=== PATIENT | male | born 1955 | race Caucasian/White ===

== ENCOUNTER → 2017-11-08 | Outpatient (CLI) | payer OTHER ==
[~2017-11-08] MED LIST: ASPIR-LOW81 MG PO; ATORVASTATIN CA20 MG PO; FISH OIL300 MG PO; METOPROLOL TART25 MG PO; MULTI-VITAMIN1 EACH PO; NEXIUM40 MG PO; SIMVASTATIN40 MG PO; VIT D PO
--- NOTE | 2017-11-08 09:15 | Diagnostic Imaging Report ---
PROCEDURE:ABDOMINAL ULTRASOUND COMPARISON:[facility] ultrasound 09/21/2015. INDICATIONS:ABDOMEN PAIN FINDINGS: Liver: The liver is enlarged in size measuring up to 19.4 cm. Increased hepatic parenchymal echogenicity. No focal mass. Main portal vein: Measures 1 cm. Hepatopedal flow. Gallbladder: No wall thickening, distension, or stones. Common Bile Duct: Measures 0.4 cm. No echogenic filling defect. Sonographic Jean's sign: Negative reported sonographic Jean's sign. Right kidney: Measures up to 11.5 cm. No solid or cystic mass, echogenic calculi, or hydronephrosis. Normal parenchymal echogenicity. Left kidney: Measures up to 12.1 cm. No solid or cystic mass, echogenic calculi, or hydronephrosis. Normal parenchymal echogenicity. Spleen: Measures 11 cm. Pancreas: The visualized portions of the pancreas are normal. Inferior vena cava: Unremarkable. Aorta: Unremarkable. Ascites: None. CONCLUSION: Hepatomegaly with hepatic steatosis. Dictated by: SAMANTHA ALAN M.D. on 11/08/2017 at 8:56 Electronically approved by: SAMANTHA ALAN M.D. on 11/08/2017 at 8:56
== END ==
LOC: US 07:11
PROVIDERS: ATTEND Internal Medicine Gastroenterology
DX: R10.9 Unspecified abdominal pain (principal); R16.0 Hepatomegaly, not elsewhere classified; K76.0 Fatty (change of) liver, not elsewhere classified
CPT/HCPCS: 76700

== ENCOUNTER → 2017-11-25 | Outpatient (CLI) | payer OTHER ==
[~2017-11-25] MED LIST changes: +SINCALIDE 3 MCG/VIAL INJ ONE
--- NOTE | 2017-11-25 15:08 | Diagnostic Imaging Report ---
Hepatobiliary Scan with Gallbladder Ejection Fraction Clinical information: 62 M with chronic RUQ abdominal pain Technique: Following intravenous administration of 7 millicuries of Tc-99m mebrofenin, dynamic images of the abdomen in the anterior projection were obtained through 30 minutes. Sincalide (CCK analog) 2.5 micrograms was administered intravenously over 30 minutes with additional imaging for determination of gallbladder ejection fraction. Discussion: Perfusion of the liver is normal. Extraction of tracer by the liver parenchyma is normal. Tracer appears promptly within the biliary tract. The gallbladder begins to fill at 15 minutes post injection of tracer and fills adequately. Tracer is seen in the small bowel by 20 minutes. There is no contractile response by the gallbladder to the pharmacologic dose of sincalide. No emptying of the gallbladder occurs during the 30 minute infusion. Impression: 1. Filling of the gallbladder excludes acute cystic duct obstruction/acute cholecystitis. 2. The gallbladder ejection fraction is undefined as there is no emptying of the gallbladder during the infusion of sincalide. This absence of a contractile response to sincalide supports the clinical diagnosis of chronic cholecystitis/gallbladder dyskinesia. Signed by: Dr. Jazmyn Zamorano M.D. on 11/25/2017 3:04 PM
== END ==
LOC: NM 09:22
PROVIDERS: ATTEND Internal Medicine Gastroenterology
DX: R10.11 Right upper quadrant pain (principal)
CPT/HCPCS: 78227; A9537; J2805

== ENCOUNTER → 2017-12-30 | Day surgery (SDC) | payer OTHER ==
[2017-12-23 10:30] LABS: BASOPHILS # (AUTO) 0.1 (0.0-0.1); BASOPHILS % 1.1 % (0.0-1.0); EOSINOPHILS # (AUTO) 0.2 (0.0-0.4); EOSINOPHILS % 1.8 % (0.0-6.0); HEMATOCRIT 48.4 % (38.2-49.6); LYMPHOCYTES # (AUTO) 2.5 (1.0-3.2); LYMPHOCYTES % 29.9 % (18.0-39.1); MEAN CORPUSCULAR HEMOGLOBIN 29.1 pg (28-32); MEAN CORPUSCULAR HGB CONC 33.1 g/dL (31-35); MEAN CORPUSCULAR VOLUME 88.2 fL (81-99); MONOCYTES # (AUTO) 0.6 (0.2-0.8); MONOCYTES % 7.3 % (4.4-11.3); NEUTROPHILS % 59.4 % (38.7-80.0); PLATELET COUNT 235 x10e3/uL (140-360); RED BLOOD COUNT 5.49 x10e6/uL (4.3-5.7); RED CELL DISTRIBUTION WIDTH 13.2 % (11.7-14.4)
[2017-12-23 10:44] LABS: BILIRUBIN,URINE NEGATIVE (NEGATIVE); CLARITY,URINE CLEAR (CLEAR); COLOR,URINE YELLOW (YELLOW); KETONES,URINE NEGATIVE (NEGATIVE); LEUKOCYTE ESTERASE ,URINE TRACE (NEGATIVE); NITRITE,URINE NEGATIVE (NEGATIVE); PROTEIN,URINE DIPSTICK NEGATIVE (NEGATIVE); URINE UROBILINOGEN 0.2 mg/dL (0.2 - 1)
[2017-12-23 10:56] LABS: ALANINE AMINOTRANSFERASE 34 IU/L (0-55); ALBUMIN 4.2 g/dL (3.5-5.0); ALBUMIN/GLOBULIN RATIO 1.5 (0.8-2.0); ALKALINE PHOSPHATASE 72 IU/L (40-150); ANION GAP 15.7 mmol/L (8-16); BLOOD UREA NITROGEN 12 mg/dL (7-26); BUN/CREATININE RATIO 10 (6-25); CALCIUM 9.7 mg/dL (8.4-10.2); CARBON DIOXIDE 25 mmol/L (22-29); CHLORIDE 107 mmol/L (98-107); CREATININE, SERUM 1.15 mg/dL (0.72-1.25); EST GLOMERULAR FILTRATION RATE > 60 ML/MIN (60-); GLUCOSE 92 mg/dL (74-118); POTASSIUM 4.7 mmol/L (3.5-5.1); SODIUM 143 mmol/L (136-145)
--- NOTE | 2017-12-23 10:57 | Diagnostic Imaging Report ---
PROCEDURE: X-RAY CHEST, TWO VIEWS COMPARISON: None. INDICATIONS: PREOP GALLBLADDER SX FINDINGS: Lungs are well-inflated. No consolidation, pleural effusion, or pneumothorax. Cardiomediastinal contour and pulmonary vasculature are within normal limits. No acute osseous abnormality. CONCLUSION: No acute thoracic abnormality. Dictated by: Alejo Centeno M.D. on 12/23/2017 at 11:06 Electronically approved by: Alejo Centeno M.D. on 12/23/2017 at 11:06
[~2017-12-30] MED LIST changes: +BUPIVACAINE 0.25%/EPI 30ML SDV INJ ONE; +DESFLURANE 240 ML BTL INH ONE; +DEXAMETHASONE SOD PHOS INJ 4 MG/ML VIAL ONE; +FAMOTIDINE 20 MG/2 ML VIAL IV ONE; +FENTANYL CITRATE/PF 100MCG/2 ML INJ ONE; +GLYCOPYRROLATE INJ 1MG/ 5 ML SYR ONE; +LABETALOL HCL 5 MG/ML 20ML VIAL ONE; +LIDOCAINE HCL 2% LOCAL INJ 5 ML SDV VIAL INJ ONE; +METOCLOPRAMIDE HCL 10 MG/2ML VIAL ONE; +MIDAZOLAM HCL 2 MG/2 ML VIAL ONE; +MORPHINE SULFATE 2 MG/ML SYR ONE; +NEOSTIGMINE 5 MG/5ML SYR ONE; +ONDANSETRON HCL INJ 2 MG/ML VIAL ONE; +PROPOFOL IV EMULSION 10 MG/ML 20 ML VIAL ONE; +ROCURONIUM BROMIDE 10 MG/ML 5ML VIAL ONE; -SINCALIDE 3 MCG/VIAL INJ ONE; +SUCCINYLCHOLINE 200 MG/10 ML SYR ONE
--- OUTSIDE RECORDS SUMMARY | 2017-12-30 05:23 | XMS REPORT ---
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 Allergies, Adverse Reactions, Alerts This patient has no known allergies or adverse reactions. Medications This patient has no known medications. Results Test Description Test Time Test Comments Text Results Atomic Results Result Comments CHEST 2 VIEWS 2017-12-23 11:06:00 [facility] [address] [place] [address] Patient Name: TIM JEWELL MR #: [id number] : 1955 Age/Sex: 62/M Req #: [id number] Adm Physician: Ordered by: MARGARET METZ MD Report #: [id number] Location: OR Room/Bed: Procedure: [id number] DX/CHEST 2 VIEWS Exam Date: 12/23/17 Exam Time: 1040 REPORT STATUS: Signed PROCEDURE: X-RAY CHEST, TWO VIEWS COMPARISON: None. INDICATIONS: PREOP GALLBLADDER SX FINDINGS: Lungs are well-inflated. No consolidation, pleural effusion, or pneumothorax. Cardiomediastinal contour and pulmonary vasculature are within normal limits. No acute osseous abnormality. CONCLUSION: No acute thoracic abnormality. Dictated by: Vivian Burnett M.D. on 12/23/2017 at 11:06 Electronically approved by: Vivian Burnett M.D. on 12/23/2017 at 11:06 Dictated By: VIVIAN BURNETT MD 05 Transcribed By: FITO on 12/23/171105 COPY TO: MARGARET METZ MD HEPTOBILIARY W PHARM 2017-11-25 15:03:00 [place] [address] Patient Name: TIM JEWELL MR #: [id number] : 1955 Age/Sex: 62/M Req #: [id number] Adm Physician: Ordered by: HETAL LAWRENCE MD Report #: [id number] Location: [place] Room/Bed: Procedure: [id number] NM/HEPTOBILIARY W PHARM Exam Date: Exam Time: REPORT STATUS: Signed Hepatobiliary Scan with Gallbladder Ejection Fraction Clinical information: 62 M with chronic RUQ abdominal pain Technique: Following intravenous administration of 7 millicuries of Tc-99m mebrofenin, dynamic images of the abdomen in the anterior projection were obtained through 30 minutes. Sincalide (CCK analog) 2.5 micrograms was administered intravenously over 30 minutes with additional imaging for determination of gallbladder ejection fraction. Discussion: Perfusion of the liver is normal. Extraction of tracer by the liver parenchyma is normal. Tracer appears promptly within the biliary tract. The gallbladder begins to fill at 15 minutes post injection of tracer and fills adequately. Tracer is seen in the small bowel by 20 minutes. There is no contractile response by the gallbladder to the pharmacologic dose of sincalide. No emptying of the gallbladder occurs during the 30 minute infusion. Impression: 1. Filling of the gallbladder excludes acute cystic duct obstruction/acute cholecystitis. 2. The gallbladder ejection fraction is undefined as there is no emptying of the gallbladder during the infusion of sincalide. This absence of a contractile response to sincalide supports the clinical diagnosis of chronic cholecystitis/gallbladder dyskinesia. Signed by: Dr. Keisha Zamorano M.D. on 11/25/2017 3:04 PM Dictated By: KEISHA ZAMORANO MD [id number] Transcribed By: VALERIE on 11/25/17 0491 COPY TO: HETAL LAWRENCE MD US ABDOMEN COMPLETE 2017-11-08 08:56:00 [place] [address] Patient Name: TIM JEWELL MR #: [id number] : 1955 Age/Sex: 62/M Req #: [id number] Adm Physician: Ordered by: HETAL LAWRENCE MD Report #: [id number] Location: US Room/Bed: Procedure: [id number] US/US ABDOMEN COMPLETE Exam Date: Exam Time: REPORT STATUS: Signed PROCEDURE: ABDOMINAL ULTRASOUND COMPARISON: [facility] ultrasound 09/21/2015. INDICATIONS: ABDOMEN PAIN FINDINGS: Liver: The liver is enlarged in size measuring up to 19.4 cm. Increased hepatic parenchymal echogenicity. No focal mass. Main portal vein: Measures 1 cm. Hepatopedal flow. Gallbladder: No wall thickening, distension, or stones. Common Bile Duct: Measures 0.4 cm. No echogenic filling defect. Sonographic Jean's sign: Negative reported sonographic Jean's sign. Right kidney: Measures up to 11.5 cm. No solid or cystic mass, echogenic calculi, or hydronephrosis. Normal parenchymal echogenicity. Left kidney: Measures up to 12.1 cm. No solid or cystic mass, echogenic calculi, or hydronephrosis. Normal parenchymal echogenicity. Spleen: Measures 11 cm. Pancreas: The visualized portions of the pancreas are normal. Inferior vena cava: Unremarkable. Aorta: Unremarkable. Ascites: None. CONCLUSION: Hepatomegaly with hepatic steatosis. Dictated by: SAMANTHA ALAN M.D. on 11/08/2017 at 8:56 Electronically approved by: SAMANTHA ALAN M.D. on 11/08/2017 at 8:56 Dictated By: SAMANTHA ALAN MD 5 Transcribed By: FITO on 11/08/17855 COPY TO: HETAL LAWRENCE MD
--- NOTE | 2017-12-30 10:35 | Operative Report ---
DATE OF PROCEDURE: December 30, 2017 PREOPERATIVE DIAGNOSIS: Biliary dyskinesia. POSTOPERATIVE DIAGNOSIS: Biliary dyskinesia and cholesterolosis. OPERATION PERFORMED: Laparoscopic cholecystectomy. DRAGLINE MECHANIC: Jagjit Warner MD ANESTHESIA: General endotracheal. COMPLICATIONS: None. ESTIMATED BLOOD LOSS: Minimal. DESCRIPTION OF PROCEDURE: With the patient lying in bed in the supine position, under good general endotracheal anesthesia, the abdomen was prepped with Betadine solution and draped in the usual manner. A Veress needle was introduced into the umbilicus, and pneumoperitoneum was established without any difficulty. An 11-mm trocar was placed into the umbilicus, and a 10-mm video laparoscope was placed into the intraabdominal cavity. Under direct vision, three 5-mm trocars were placed in the right subcostal region. Video laparoscopy at this point revealed a gallbladder that was covered up with adhesions and had changes consistent with cholesterolosis. The rest of the abdominal exploration was otherwise within normal limits. All of the adhesions to the gallbladder were then slowly and carefully taken down. The peritoneum overlying the neck of the gallbladder was then opened, and the cystic duct was identified. Cystic duct was followed to its junction with the common duct. Cystic duct was then circumferentially dissected away from the common duct, doubly clipped and divided. The cystic artery was similarly doubly clipped and divided. The gallbladder was then slowly and carefully taken off the liver bed using the cautery scissors, and perfect hemostasis was ascertained. The gallbladder was grasped through the umbilical port and removed without any difficulty. Video laparoscopy was then again carried out. The liver bed was found to perfectly dry. All of the excess fluid was aspirated. The pneumoperitoneum was evacuated, and all the trocars were removed under direct vision. The midline fascia at the umbilicus was then closed with a [id number] of #0 Vicryl. All layers were infiltrated on the way out with solution of 1/4 percent Marcaine. Subcutaneous tissue was approximated with 3-0 Vicryl and the skin was closed with subcuticular 5-0 Vicryl. Benzoin, Steri-Strips and Band-Aids were applied. The sponge, lap and needle count was correct. Patient tolerated the procedure well and returned to the recovery room in stable condition. Job#: [id number]
[2017-12-30 11:30] VITALS: BP 140/85
== END | disposition home or self-care (01) ==
LOC: OR 05:22
PROVIDERS: ATTEND Surgery
DX: K81.1 Chronic cholecystitis (principal); K82.8 Other specified diseases of gallbladder; K76.0 Fatty (change of) liver, not elsewhere classified; G47.33 Obstructive sleep apnea (adult) (pediatric); I10 Essential (primary) hypertension; K21.9 Gastro-esophageal reflux disease without esophagitis; F41.9 Anxiety disorder, unspecified; Z88.1 Allergy status to other antibiotic agents; Z01.810 Encounter for preprocedural cardiovascular examination; Z01.812 Encounter for preprocedural laboratory examination; Z01.818 Encounter for other preprocedural examination; Z79.82 Long term (current) use of aspirin
CPT/HCPCS: 36415; 47562; 71046; 80053; 81003; 85025; 88304; 93005; C1766; J1100; J2001; J2250; J2270; J2405; J2704; J2765; J3490 ×2

== ENCOUNTER → 2019-02-16 | Day surgery (SDC) | payer MEDICARE ==
[2019-02-12 09:32] LABS: BASOPHILS # (AUTO) 0.1 (0.0-0.1); EOSINOPHILS # (AUTO) 0.1 (0.0-0.4); EOSINOPHILS % 1.4 % (0.0-6.0); HEMATOCRIT 46.7 % (38.2-49.6); HEMOGLOBIN 15.5 g/dL (14.0-18.0); LYMPHOCYTES # (AUTO) 2.2 (1.0-3.2); LYMPHOCYTES % 27.3 % (18.0-39.1); MEAN CORPUSCULAR HEMOGLOBIN 28.9 pg (28-32); MEAN CORPUSCULAR HGB CONC 33.2 g/dL (31-35); MONOCYTES # (AUTO) 0.7 (0.2-0.8); MONOCYTES % 8.8 % (4.4-11.3); NEUTROPHILS # (AUTO) 4.9 (2.1-6.9); NEUTROPHILS % 61.2 % (38.7-80.0); PLATELET COUNT 242 x10e3/uL (140-360); RED BLOOD COUNT 5.37 x10e6/uL (4.3-5.7)
[~2019-02-16] MED LIST changes: +AMLODIPINE BESY10 MG PO; -BUPIVACAINE 0.25%/EPI 30ML SDV INJ ONE; -DESFLURANE 240 ML BTL INH ONE; -DEXAMETHASONE SOD PHOS INJ 4 MG/ML VIAL ONE; -FAMOTIDINE 20 MG/2 ML VIAL IV ONE; +GLUCAGON FOR INJ 1 MG VIAL ONE; -GLYCOPYRROLATE INJ 1MG/ 5 ML SYR ONE; +HYOSCYAMINE 0.125 MG TAB ONE; -LABETALOL HCL 5 MG/ML 20ML VIAL ONE; -LIDOCAINE HCL 2% LOCAL INJ 5 ML SDV VIAL INJ ONE; -MORPHINE SULFATE 2 MG/ML SYR ONE; -NEOSTIGMINE 5 MG/5ML SYR ONE; -ONDANSETRON HCL INJ 2 MG/ML VIAL ONE; -PROPOFOL IV EMULSION 10 MG/ML 20 ML VIAL ONE; +PROPOFOL IV EMULSION 10 MG/ML 50 ML VIAL ONE; -ROCURONIUM BROMIDE 10 MG/ML 5ML VIAL ONE; -SUCCINYLCHOLINE 200 MG/10 ML SYR ONE
--- NOTE | 2019-02-16 07:10 | NUR ---
SPIRITUAL CARE - Pre-Surgery Assessment: Pt in bed. Pt's at bedside. Pt reported supportive attention from family and friends. Intervention: I provided pastoral presence, hospitality, sympathetic listening, and prayer. I acquainted pt with availability of environmental lawyer while hospitalized. Outcome: Pt expressed appreciation for visit. No need for follow up indicated at this time. BLANCA BELTRAN Education Faculty Member Spiritual Care Department O: [phone] Pager: [phone] ([phone] number calling from)
[2019-02-16 09:45] VITALS: BP 124/83
--- NOTE | 2019-02-16 13:20 | Operative Report ---
DATE OF PROCEDURE: 02/16/2019 SURGEON: Leroy Mir MD PROCEDURES: EGD with esophageal dilatation and polypectomy and biopsies and a colonoscopy with polypectomy and biopsies. INDICATIONS FOR EGD: Dyspepsia, dysphagia. INDICATIONS FOR COLONOSCOPY: Surveillance colonoscopy, personal history of colon polyps. MEDICATIONS: The patient was done under MAC, please see anesthesiologist's note. PROCEDURE IN DETAIL: With the patient in the left lateral decubitus position, a flexible fiberoptic Olympus gastroscope was introduced into the esophagus under direct visualization without any difficulty. There was some patchy erythema noted in distal esophagus. Esophagus was dilated to size 52-Mong[place] Mendes. The scope was then advanced with ease into the stomach traversing a small hiatal hernia. Mucosa overlying the antrum and the body revealed some diffuse intense erythema and moderate edema, and biopsies were obtained and sent to stain for H. pylori. Multiple polyps were noted in the body of the stomach and approximately 15 were removed per snare electrocautery. Pylorus was intubated with ease and the scope was advanced all the way to the second portion of the duodenum. The scope was then withdrawn slowly. Mucosa overlying the proximal second portion and the duodenal bulb appeared to be within normal limits. The scope was then withdrawn back into the stomach and retroflexed, mucosa overlying the fundus and the cardia appeared to be within normal limits. The scope was then straightened out, it was subsequently withdrawn, and the patient tolerated the procedure well. IMPRESSION: 1. Distal esophagitis, mild. 2. Esophagus dilated to size 52-Mong[place] Mendes. 3. Small hiatal hernia. 4. Gastritis, biopsied, biopsies sent to stain for Helicobacter pylori. 5. Gastric polyps, multiple, approximately 15 removed per snare electrocautery. PLAN: Follow up histology. Initiate Protonix 40 mg 1 p.o. q.a.m. before meals. The patient was then turned around and after adequate lubrication of the anal canal, a flexible fiberoptic Olympus colonoscope was inserted into the rectum with ease and advanced all the way to the cecum. Retained stools were noted to be scattered throughout the colon, primarily in the left colon. One polyp was hot snared, two polyps were cold biopsies in the cecum and one polyp approximately 5 mm in size was hot snared in the proximal ascending colon and hemoclipped x1. The rest of the ascending colon appeared to be within normal limits. Approximately 1 cm submucosal polypoid lesion with yellowish over hue suspicious for lipoma was biopsied from the transverse colon. The descending grossly appeared to be within normal limits. Diverticular disease was noted in the sigmoid colon. One polyp was hot biopsied in the sigmoid. The rectum appeared to be within normal limits. The scope was then retroflexed into the distal rectum and moderate-sized internal hemorrhoids were noted, none of which was actively bleeding. The scope was then straightened out, it was subsequently withdrawn, and the patient tolerated the procedure well. IMPRESSION: 1. Suboptimal prep. 2. Cecal polyps x3, two cold biopsies and one hot snared. 3. Ascending colon polyp, hot snared, hemoclipped x1. 4. Rule out lipoma, transverse colon. 5. Diverticulosis. 6. Sigmoid colon polyp, hot biopsied. 7. Internal hemorrhoids, none actively bleeding. PLAN: Follow up histology. Initiate high-fiber, low-fat diet. Initiate high-fiber supplement. The patient due to the suboptimal prep might benefit from a followup colonoscopy in one year to rule out synchronous colorectal neoplasm. Leroy Mir MD [facility] [place] /[id number] cc: Rafael Harris MD
== END | disposition home or self-care (01) ==
LOC: OR 05:52
PROVIDERS: ATTEND Internal Medicine Gastroenterology
DX: K29.60 Other gastritis without bleeding (principal); K20.8 Other esophagitis; K64.8 Other hemorrhoids; K31.89 Other diseases of stomach and duodenum; Z68.35 Body mass index [BMI] 35.0-35.9, adult; I10 Essential (primary) hypertension; Z87.19 Personal history of other diseases of the digestive system; R13.10 Dysphagia, unspecified; E78.00 Pure hypercholesterolemia, unspecified; Z88.1 Allergy status to other antibiotic agents; G47.30 Sleep apnea, unspecified; K20.9 Esophagitis, unspecified; K29.70 Gastritis, unspecified, without bleeding; K44.9 Diaphragmatic hernia without obstruction or gangrene; K31.7 Polyp of stomach and duodenum; K63.5 Polyp of colon; K57.30 Diverticulosis of large intestine without perforation or abscess without bleeding; D12.0 Benign neoplasm of cecum; D12.5 Benign neoplasm of sigmoid colon; D17.5 Benign lipomatous neoplasm of intra-abdominal organs; Z01.810 Encounter for preprocedural cardiovascular examination; Z01.812 Encounter for preprocedural laboratory examination
CPT/HCPCS: 36415; 43239; 43450; 45384; 45385; 85025; 88305; 88312; 93005; J1610; J2250; J2704; J2765; J3010; 43251; 45378

== ENCOUNTER → 2019-04-22 | Outpatient (CLI) | payer MEDICARE ==
[~2019-04-22] MED LIST changes: -FENTANYL CITRATE/PF 100MCG/2 ML INJ ONE; -GLUCAGON FOR INJ 1 MG VIAL ONE; -HYOSCYAMINE 0.125 MG TAB ONE; -METOCLOPRAMIDE HCL 10 MG/2ML VIAL ONE; -MIDAZOLAM HCL 2 MG/2 ML VIAL ONE; -PROPOFOL IV EMULSION 10 MG/ML 50 ML VIAL ONE
--- NOTE | 2019-04-22 13:33 | Diagnostic Imaging Report ---
Exam: Lumbar spine series Clinical history: Low back pain Findings: Anterior wedge deformity is noted in the L4 vertebral body with approximately 25% loss in height most consistent with compression fracture, age indeterminant. Small anterior marginal osteophytes are also noted. The soft tissue is unremarkable. Scattered atherosclerotic calcification of the aorta is noted. The patient is status post cholecystectomy. Impression: 1. L4 compression fracture, age indeterminant. If indicated, MR can be performed for further assessment. Signed by: Dr. Cruzito Garcia MD on 04/22/2019 1:31 PM
== END ==
LOC: RAD 12:08
PROVIDERS: ATTEND Internal Medicine
DX: M54.5 Low back pain (principal)
CPT/HCPCS: 72100

== ENCOUNTER 2019-05-06 09:38 | Outpatient (RCR) | payer MEDICARE | END 2019-05-09 | LOC: PT 09:38 | PROVIDERS: ATTEND Internal Medicine | DX: M54.5 Low back pain (principal) ==

== ENCOUNTER → 2019-05-07 | Outpatient (CLI) | payer MEDICARE ==
--- NOTE | 2019-05-07 09:55 | Diagnostic Imaging Report ---
EXAM: CT Chest WITHOUT intravenous contrast 05/07/2019 8:33 AM INDICATION: Cough COMPARISON: Chest radiograph 03/23/2019 TECHNIQUE: Chest was scanned utilizing a multidetector helical scanner from the lung apex through the level of the adrenal glands without administration of IV contrast. Coronal and sagittal reformations were obtained. Routine protocol was performed. IV CONTRAST: None RADIATION DOSE: Total DLP: 506.5 mGy*cm. Dose modulation, iterative reconstruction, and/or weight based adjustment of the mA/kV was utilized to reduce the radiation dose to as low as reasonably achievable. COMPLICATIONS: None FINDINGS: LINES/ TUBES: None. LUNGS AND AIRWAYS: Increased AP diameter of the chest. The central airways are patent. No focal consolidation or pulmonary edema. Minimal bibasilar dependent subsegmental atelectasis. No suspicious pulmonary nodules. PLEURA: The pleural spaces are clear. HEART AND MEDIASTINUM: The thyroid gland is minimally visualized. No supraclavicular, mediastinal, or hilar lymphadenopathy. No axillary lymphadenopathy. The heart is not enlarged. No pericardial effusion. Mild scattered atherosclerotic calcifications of the aorta and coronary arteries. UPPER ABDOMEN: Status post cholecystectomy. No acute findings. BONES: The visualized bony thorax is within normal limits. SOFT TISSUES: Unremarkable. IMPRESSION: Hyperinflated lungs. No focal pneumonia or pulmonary edema. Signed by: Jonah oLera MD on 05/07/2019 9:53 AM
== END ==
LOC: CT 08:24
PROVIDERS: ATTEND Internal Medicine Pulmonary Disease
DX: R05 Cough (principal)
CPT/HCPCS: 71250

== ENCOUNTER 2019-05-21 08:00 | Outpatient (RCR) | payer MEDICARE | END 2019-06-09 | LOC: PT 08:00 | PROVIDERS: ATTEND Internal Medicine | DX: M54.5 Low back pain (principal); S32.040A Wedge compression fracture of fourth lumbar vertebra, initial encounter for closed fracture ==

== ENCOUNTER → 2020-05-25 | Outpatient (CLI) | payer MEDICARE ==
[~2020-05-25] MED LIST changes: +IOPAMIDOL 370 MG/ML 200 ML INFUS..BTL INJ ONE; +SODIUM CHLORIDE 0.9% 250ML 250 ML ONE; +SODIUM CHLORIDE 0.9% 50ML 0 ML ONE
[2020-05-25 12:57] LABS: BLOOD UREA NITROGEN 11 mg/dL (7-26); BUN/CREATININE RATIO 10 (6-25); CREATININE, SERUM 1.05 mg/dL (0.72-1.25); EST GLOMERULAR FILTRATION RATE > 60 ML/MIN (60-)
== END ==
LOC: CT 11:27
PROVIDERS: ATTEND Urology
DX: R31.21 Asymptomatic microscopic hematuria (principal)
CPT/HCPCS: 36415; 74178; 82565; 84520; J7050; Q9967

== ENCOUNTER → 2020-09-15 | Outpatient (CLI) | payer MEDICARE ==
[~2020-09-15] MED LIST changes: -IOPAMIDOL 370 MG/ML 200 ML INFUS..BTL INJ ONE; -SODIUM CHLORIDE 0.9% 250ML 250 ML ONE; -SODIUM CHLORIDE 0.9% 50ML 0 ML ONE
== END ==
LOC: RAD 11:27
PROVIDERS: ATTEND Internal Medicine
DX: M17.11 Unilateral primary osteoarthritis, right knee (principal)

== ENCOUNTER → 2020-11-08 | Outpatient (RCR) | payer MEDICARE | LOC: PT 15:21 | PROVIDERS: ATTEND Specialist | DX: M17.11 Unilateral primary osteoarthritis, right knee (principal) ==

== ENCOUNTER 2020-11-22 15:55 | Outpatient (RCR) | payer MEDICARE ==
[2020-11-27] MEDS ORDERED: ATIVAN0.5 MG PO (17:06)
[2020-11-27] MEDS ORDERED: vit b complex PO (17:06)
[2020-11-27] MEDS ORDERED: PANTOPRAZOLE SO40 MG PO (17:06)
== END 2020-12-08 ==
LOC: PT 15:55
PROVIDERS: ATTEND Specialist
DX: M17.11 Unilateral primary osteoarthritis, right knee (principal)

== ENCOUNTER 2020-11-27 15:00 | Inpatient (IN) | payer MEDICARE ==
[~2020-11-27] VITALS: Ht 180.3 cm; Wt 108.9 kg
[2020-11-27 16:14] LABS: INR 0.98; PROTHROMBIN TIME 13.2 seconds (11.9-14.5)
[2020-11-27 16:15] LABS: PARTIAL THROMBOPLASTIN TIME 25.2 seconds (23.8-35.5)
[2020-11-27 16:28] LABS: CREATINE KINASE MB 10.8 ng/mL (0-5.0)
[2020-11-27 16:29] LABS: ALBUMIN 4.3 g/dL (3.5-5.0); ALBUMIN/GLOBULIN RATIO 1.5 (0.8-2.0); ANION GAP 16.5 mmol/L (8-16); CALCIUM 9.3 mg/dL (8.4-10.2); CREATININE, SERUM 1.17 mg/dL (0.72-1.25); MAGNESIUM 1.9 MG/DL (1.3-2.1); POTASSIUM 3.5 mmol/L (3.5-5.1)
[2020-11-27 16:36] LABS: BASOPHILS # (AUTO) 0.1 (0.0-0.1); BASOPHILS % 0.9 % (0.0-1.0); EOSINOPHILS # (AUTO) 0.1 (0.0-0.4); EOSINOPHILS % 1.2 % (0.0-6.0); HEMATOCRIT 45.7 % (38.2-49.6); HEMOGLOBIN 14.6 g/dL (14.0-18.0); LYMPHOCYTES # (AUTO) 1.7 (1.0-3.2); LYMPHOCYTES % 16.1 % (18.0-39.1); MEAN CORPUSCULAR HEMOGLOBIN 27.3 pg (28-32); MEAN CORPUSCULAR HGB CONC 31.9 g/dL (31-35); MEAN CORPUSCULAR VOLUME 85.4 fL (81-99); MONOCYTES # (AUTO) 0.8 (0.2-0.8); MONOCYTES % 7.5 % (4.4-11.3); NEUTROPHILS # (AUTO) 7.8 (2.1-6.9); NEUTROPHILS % 73.9 % (38.7-80.0); PLATELET COUNT 245 x10e3/uL (140-360); RED BLOOD COUNT 5.35 x10e6/uL (4.3-5.7); RED CELL DISTRIBUTION WIDTH 14.6 % (11.7-14.4)
[2020-11-27] MEDS ORDERED: vit b complex PO (17:06)
[2020-11-27] MEDS ORDERED: ATIVAN0.5 MG PO (17:06)
[2020-11-27] MEDS ORDERED: PANTOPRAZOLE SO40 MG PO (17:06)
[2020-11-27] MEDS ORDERED: CLOPIDOGREL BISULFATE 75 MG TAB PO ONE (17:15)
[2020-11-27] MEDS ORDERED: MORPHINE SULFATE INJ 2 MG/ML SYR IV PRN (17:15)
[2020-11-27] MEDS ORDERED: ONDANSETRON HCL INJ 2MG/ML 2ML 2 MG/ML VIAL IV PRN (17:15)
[2020-11-27] MEDS ORDERED: ASPIRIN 81 MG CHEW TAB PO ONE (17:15)
[2020-11-27] MEDS ORDERED: ENOXAPARIN SODIUM INJ 100 MG/ML SYR SC ONE (17:30)
[2020-11-27] MEDS: FAMOTIDINE 20 MG/2 ML VIAL IV SCH (17:56)
[2020-11-27] MEDS ORDERED: CASIRIVIMAB/IMDEVIMAB 10 ML in SODIUM CHLORIDE 0.9% 100 ML IV ONE (18:00)
[2020-11-27 19:40] VITALS: BP 152/89
[2020-11-27 20:00] VITALS: BP 130/109
[2020-11-27 20:03] LABS: CREATINE KINASE MB 12.7 ng/mL (0-5.0)
[2020-11-27 21:00] VITALS: BP 152/89
[2020-11-27] MEDS ORDERED: POTASSIUM CHLORIDE 10MEQ EA PO ONE (21:45)
[2020-11-27] MEDS: SODIUM CHLORIDE 0.9% 1000ML 1,000 ML IV SCH (22:14)
[2020-11-28] VITALS (7 sets, daily range): BP systolic 117–156; BP diastolic 76–88
[2020-11-28 01:15] LABS: CREATINE KINASE MB 16.8 ng/mL (0-5.0)
[2020-11-28 05:05] LABS: BASOPHILS # (AUTO) 0.1 (0.0-0.1); EOSINOPHILS # (AUTO) 0.2 (0.0-0.4); EOSINOPHILS % 1.7 % (0.0-6.0); HEMATOCRIT 46.5 % (38.2-49.6); HEMOGLOBIN 15.1 g/dL (14.0-18.0); LYMPHOCYTES # (AUTO) 2.2 (1.0-3.2); LYMPHOCYTES % 21.7 % (18.0-39.1); MEAN CORPUSCULAR HEMOGLOBIN 27.4 pg (28-32); MEAN CORPUSCULAR HGB CONC 32.5 g/dL (31-35); MEAN CORPUSCULAR VOLUME 84.2 fL (81-99); MONOCYTES # (AUTO) 0.8 (0.2-0.8); MONOCYTES % 7.6 % (4.4-11.3); NEUTROPHILS # (AUTO) 6.7 (2.1-6.9); NEUTROPHILS % 67.6 % (38.7-80.0); PLATELET COUNT 225 x10e3/uL (140-360); RED BLOOD COUNT 5.52 x10e6/uL (4.3-5.7); RED CELL DISTRIBUTION WIDTH 14.5 % (11.7-14.4)
[2020-11-28] MEDS: FAMOTIDINE 20 MG/2 ML VIAL IV SCH ×2 (05:10→16:43)
[2020-11-28 05:28] LABS: ALBUMIN/GLOBULIN RATIO 1.4 (0.8-2.0); ANION GAP 13.3 mmol/L (8-16); CALCIUM 8.8 mg/dL (8.4-10.2); CHOL/HDL RATIO 2.9 (3.9-4.7); POTASSIUM 4.3 mmol/L (3.5-5.1)
[2020-11-28 06:13] LABS: CREATINE KINASE MB 15.5 ng/mL (0-5.0)
[2020-11-28] MEDS: ASPIRIN 81 MG ENTERIC COATED PO SCH (09:06)
[2020-11-28] MEDS: SODIUM CHLORIDE 0.9% 1000ML 1,000 ML IV SCH ×2 (09:50→23:53)
[2020-11-28] MEDS ORDERED: LIDOCAINE HCL 2% LOCAL 20 ML VIAL ONE (10:03)
[2020-11-28] MEDS ORDERED: HEPARIN SOD/SOD CHLORIDE 2,000 ML ONE (10:03)
[2020-11-28] MEDS ORDERED: MIDAZOLAM HCL 2 MG/2 ML VIAL ONE (10:03)
[2020-11-28] MEDS ORDERED: FENTANYL CITRATE/PF 100MCG/2 ML INJ ONE (10:03)
[2020-11-28] MEDS ORDERED: IOPAMIDOL 370 MG/ML 200 ML INFUS..BTL INJ ONE (10:04)
[2020-11-28] MEDS ORDERED: SODIUM CHLORIDE 0.9% 1000ML 1,000 ML ONE (10:04)
[2020-11-28] MEDS ORDERED: SODIUM CHLORIDE 0.9% 50ML 50 ML ONE (10:49)
[2020-11-28] MEDS ORDERED: BIVALRIUDIN 250 MG/VIAL VIAL IV ONE (10:49)
[2020-11-28] MEDS ORDERED: CLOPIDOGREL BISULFATE 75 MG TAB ONE (11:10)
[2020-11-28] MEDS ORDERED: ASPIRIN 81 MG CHEW TAB ONE (11:10)
[2020-11-28] MEDS ORDERED: ATORVASTATIN 40 MG TAB PO SCH (21:00)
[2020-11-29] VITALS: BP 126/84
[2020-11-29 04:00] VITALS: BP 142/79
[2020-11-29] MEDS: FAMOTIDINE 20 MG/2 ML VIAL IV SCH (05:47)
[2020-11-29 06:11] LABS: BASOPHILS # (AUTO) 0.1 (0.0-0.1); BASOPHILS % 1.1 % (0.0-1.0); EOSINOPHILS # (AUTO) 0.2 (0.0-0.4); EOSINOPHILS % 2.3 % (0.0-6.0); HEMATOCRIT 44.9 % (38.2-49.6); HEMOGLOBIN 14.6 g/dL (14.0-18.0); LYMPHOCYTES # (AUTO) 1.8 (1.0-3.2); LYMPHOCYTES % 22.1 % (18.0-39.1); MEAN CORPUSCULAR HEMOGLOBIN 27.5 pg (28-32); MEAN CORPUSCULAR HGB CONC 32.5 g/dL (31-35); MEAN CORPUSCULAR VOLUME 84.6 fL (81-99); MONOCYTES # (AUTO) 0.8 (0.2-0.8); MONOCYTES % 9.6 % (4.4-11.3); NEUTROPHILS # (AUTO) 5.3 (2.1-6.9); NEUTROPHILS % 64.5 % (38.7-80.0); PLATELET COUNT 220 x10e3/uL (140-360); RED BLOOD COUNT 5.31 x10e6/uL (4.3-5.7); RED CELL DISTRIBUTION WIDTH 14.6 % (11.7-14.4)
[2020-11-29 06:37] LABS: ALBUMIN 3.9 g/dL (3.5-5.0); ALBUMIN/GLOBULIN RATIO 1.5 (0.8-2.0); ANION GAP 13.9 mmol/L (8-16); CREATININE, SERUM 1.06 mg/dL (0.72-1.25); POTASSIUM 3.9 mmol/L (3.5-5.1)
[2020-11-29] MEDS: ASPIRIN 81 MG ENTERIC COATED PO SCH (07:41)
[2020-11-29] MEDS ORDERED: METOPROLOL TARTRATE 25 MG TAB PO SCH (09:00)
[2020-11-29] MEDS ORDERED: CLOPIDOGREL BISULFATE 75 MG TAB PO SCH (09:00)
[2020-11-29 09:04] VITALS: BP 149/92
[2020-11-29 09:06] VITALS: BP 149/92
[2020-11-29] MEDS ORDERED: ONDANSETRON HCL 4 MG ORAL DISINTEGRATING TAB PO PRN (11:30)
[2020-11-29 11:38] VITALS: BP 125/92
[2020-11-29] MEDS ORDERED: FAMOTIDINE 20 MG TAB PO SCH (16:30)
== END 2020-11-29 12:56 | disposition home or self-care (01) | DRG 246 ==
LOC: ER 15:31 → ERHOLD 17:14 → IMCU 18:25
PROVIDERS: ADMIT Internal Medicine; ATTEND Internal Medicine
PROC: 027034Z Dilation of Coronary Artery, One Artery with Drug-eluting Intraluminal Device, Percutaneous Approach (ICD-10-PCS; principal; 2020-11-28)
PROC: 4A023N7 Measurement of Cardiac Sampling and Pressure, Left Heart, Percutaneous Approach (ICD-10-PCS; 2020-11-28)
PROC: B2111ZZ Fluoroscopy of Multiple Coronary Arteries using Low Osmolar Contrast (ICD-10-PCS; 2020-11-28)
PROC: B2151ZZ Fluoroscopy of Left Heart using Low Osmolar Contrast (ICD-10-PCS; 2020-11-28)
DX: I21.4 Non-ST elevation (NSTEMI) myocardial infarction (principal); U07.1 COVID-19; K21.9 Gastro-esophageal reflux disease without esophagitis; E78.5 Hyperlipidemia, unspecified; J42 Unspecified chronic bronchitis; E66.9 Obesity, unspecified; I25.10 Atherosclerotic heart disease of native coronary artery without angina pectoris; I11.9 Hypertensive heart disease without heart failure; Z68.33 Body mass index [BMI] 33.0-33.9, adult; Z90.49 Acquired absence of other specified parts of digestive tract; Z88.1 Allergy status to other antibiotic agents; Z88.8 Allergy status to other drugs, medicaments and biological substances; Z82.49 Family history of ischemic heart disease and other diseases of the circulatory system; K29.70 Gastritis, unspecified, without bleeding
CPT/HCPCS: 36415; 71045; 80053; 80061; 82550; 82553; 83735; 84443; 84484; 85025; 85610; 85730; 92928; 93005; 93306; 93458; 99152; 99153; 99284; C1725; C1760; C1769; C1876; C1887; J0583; J1650; J2001; J2250; J3010; J7030; J7050; Q9967; U0002

== ENCOUNTER 2021-02-12 14:35 | Emergency (ER) | payer MEDICARE ==
[~2021-02-12] VITALS: Ht 180.3 cm; Wt 104.3 kg
[~2021-02-12 14:35] MED LIST changes: +ATIVAN0.5 MG PO; +PANTOPRAZOLE SO40 MG PO; +vit b complex PO
[2021-02-12] MEDS ORDERED: CEFDINIR300 MG PO (15:15)
== END 2021-02-12 15:42 | disposition home or self-care (01) ==
LOC: FSED 15:05
DX: R05.9 Cough, unspecified (principal); J20.9 Acute bronchitis, unspecified; J06.9 Acute upper respiratory infection, unspecified; R53.81 Other malaise; I10 Essential (primary) hypertension; E78.5 Hyperlipidemia, unspecified; F41.9 Anxiety disorder, unspecified
CPT/HCPCS: 71046; 83518; 87400; 99283

== ENCOUNTER → 2021-07-21 | Outpatient (CLI) | payer MEDICARE ==
[~2021-07-21] MED LIST changes: +CEFDINIR300 MG PO
== END ==
LOC: MRI 07:34
PROVIDERS: ATTEND Physician Assistant
DX: M25.561 Pain in right knee (principal); G89.29 Other chronic pain

== ENCOUNTER → 2022-04-02 | Outpatient (CLI) | payer MEDICARE | LOC: RAD 12:46 | PROVIDERS: ATTEND Internal Medicine | DX: I50.32 Chronic diastolic (congestive) heart failure (principal); I12.9 Hypertensive chronic kidney disease with stage 1 through stage 4 chronic kidney disease, or unspecified chronic kidney disease | CPT/HCPCS: 71046 ==

== ENCOUNTER 2022-09-01 10:36 | Emergency (ER) | payer MEDICARE ==
[~2022-09-01] VITALS: Ht 180.3 cm; Wt 108.9 kg
[2022-09-01 11:22] LABS: BASOPHILS # (AUTO) 0.1 (0.0-0.1); BASOPHILS % 1.4 % (0.0-1.0); EOSINOPHILS # (AUTO) 0.2 (0.0-0.4); EOSINOPHILS % 2.1 % (0.0-6.0); HEMATOCRIT 45.4 % (38.2-49.6); HEMOGLOBIN 15.2 g/dL (14.0-18.0); LYMPHOCYTES # (AUTO) 2.1 (1.0-3.2); MEAN CORPUSCULAR HEMOGLOBIN 28.5 pg (28-32); MEAN CORPUSCULAR HGB CONC 33.5 g/dL (31-35); MONOCYTES # (AUTO) 0.6 (0.2-0.8); MONOCYTES % 7.5 % (4.4-11.3); NEUTROPHILS # (AUTO) 5.1 (2.1-6.9); NEUTROPHILS % 62.8 % (38.7-80.0); PLATELET COUNT 223 x10e3/uL (140-360); RED BLOOD COUNT 5.34 x10e6/uL (4.3-5.7); RED CELL DISTRIBUTION WIDTH 13.5 % (11.7-14.4)
[2022-09-01 11:44] LABS: ALBUMIN 4.4 g/dL (3.5-5.0); ALBUMIN/GLOBULIN RATIO 1.7 (0.8-2.0); ANION GAP 15.7 mmol/L (8-16); CALCIUM 9.8 mg/dL (8.4-10.2); CREATININE, SERUM 1.22 mg/dL (0.72-1.25); POTASSIUM 4.7 mmol/L (3.5-5.1)
[2022-09-01 12:03] LABS: CLARITY,URINE CLOUDY (CLEAR); COLOR,URINE BROWN (YELLOW); KETONES,URINE TRACE (NEGATIVE); LEUKOCYTE ESTERASE ,URINE NEGATIVE (NEGATIVE); NITRITE,URINE NEGATIVE (NEGATIVE); PROTEIN,URINE DIPSTICK >=300 (NEGATIVE); URINE UROBILINOGEN 1 mg/dL (0.2 - 1)
[2022-09-01 12:05] LABS: RBC,URINE >50 /HPF (0-5)
[2022-09-01 12:06] LABS: BACTERIA,URINE MODERATE /HPF; EPITHELIAL CELLS,URINE RARE /LPF
[2022-09-01] MEDS ORDERED: CEFTRIAXONE 1 GM VIAL IV ONE (15:30)
[2022-09-01] MEDS ORDERED: CEFUROXIME500 MG PO ×2 (15:44→17:40)
[2022-09-01 16:08] VITALS: O2SAT 98
== END 2022-09-01 16:15 | disposition home or self-care (01) ==
LOC: ER 10:48
DX: R31.9 Hematuria, unspecified (principal); N39.0 Urinary tract infection, site not specified; I10 Essential (primary) hypertension; E78.5 Hyperlipidemia, unspecified; F41.9 Anxiety disorder, unspecified
CPT/HCPCS: 36415; 74178; 80053; 81001; 85025; 87086; 99284; J0696

== ENCOUNTER 2023-12-27 06:40 | Emergency (ER) | payer MEDICARE ==
[~2023-12-27] VITALS: Ht 180.3 cm; Wt 111.1 kg
[~2023-12-27 06:40] MED LIST changes: +CEFUROXIME500 MG PO; +ceftin PO
[2023-12-27 07:16] VITALS: PULSE 67; RESP 18; TEMP 98.2; O2SAT 98
[2023-12-27] MEDS: KETOROLAC TROMETHAMINE 60 MG/2 ML VIAL IM ONE (08:04)
== END 2023-12-27 08:24 | disposition home or self-care (01) ==
LOC: ER 06:54
DX: M79.602 Pain in left arm (principal); M79.18 Myalgia, other site; T50.A95A Adverse effect of other bacterial vaccines, initial encounter; I10 Essential (primary) hypertension; E78.5 Hyperlipidemia, unspecified; K21.9 Gastro-esophageal reflux disease without esophagitis; Z85.828 Personal history of other malignant neoplasm of skin; Z95.5 Presence of coronary angioplasty implant and graft
CPT/HCPCS: 99283; J1885

== ENCOUNTER → 2024-12-14 | Day surgery (SDC) | payer MEDICARE ==
[2024-12-08 08:53] LABS: BASOPHILS % 0.8 % (0.0-1.0); EOSINOPHILS % 1.3 % (0.0-6.0); LYMPHOCYTES % 20.5 % (18.0-39.1); MONOCYTES % 6.7 % (4.4-11.3); NEUTROPHILS % 70.5 % (38.7-80.0); RED CELL DISTRIBUTION WIDTH 13.6 % (11.7-14.4)
[~2024-12-14] MED LIST changes: +FLOMAX0.4 MG PO; +GLUCAGON FOR INJ 1 MG VIAL ONE; +HYOSCYAMINE SULFATE 0.5 MG/ML INJ ONE; +LIDOCAINE HCL 2% LOCAL INJ 5 ML SDV VIAL INJ ONE; +PLAVIX75 MG PO; +PROPOFOL IV EMULSION 10 MG/ML 20 ML VIAL ONE; +VITAMIN D350 MC1 PO; +[UNRECOGNIZED DRUG - OTHER]
[2024-12-14] MEDS: LACTATED RINGER'S 1,000 ML ONE (06:37)
[2024-12-14 09:05] VITALS: BP 130/88; PULSE 70; RESP 14; TEMP 97.5; O2SAT 95
== END | disposition home or self-care (01) ==
LOC: OR 05:47
PROVIDERS: ATTEND Internal Medicine Gastroenterology
DX: Z09 Encounter for follow-up examination after completed treatment for conditions other than malignant neoplasm (principal); K63.5 Polyp of colon; K57.30 Diverticulosis of large intestine without perforation or abscess without bleeding; K64.8 Other hemorrhoids; K59.00 Constipation, unspecified; K63.89 Other specified diseases of intestine; K21.9 Gastro-esophageal reflux disease without esophagitis; K44.9 Diaphragmatic hernia without obstruction or gangrene; C44.111 Basal cell carcinoma of skin of unspecified eyelid, including canthus; G47.33 Obstructive sleep apnea (adult) (pediatric); I25.10 Atherosclerotic heart disease of native coronary artery without angina pectoris; I25.2 Old myocardial infarction; I10 Essential (primary) hypertension; E78.00 Pure hypercholesterolemia, unspecified; I45.10 Unspecified right bundle-branch block; N40.0 Benign prostatic hyperplasia without lower urinary tract symptoms; Z01.810 Encounter for preprocedural cardiovascular examination; Z01.812 Encounter for preprocedural laboratory examination; Z95.5 Presence of coronary angioplasty implant and graft; Z79.02 Long term (current) use of antithrombotics/antiplatelets
CPT/HCPCS: 36415; 45380; 45385; 85025; 93005; J1610; J1980; J2003; J2704; J7121; 45378